=== PATIENT | male | born 1950 | race Two or more races ===

== ENCOUNTER 2019-05-09 15:33 | Inpatient (IN) | payer OTHER ==
[~2019-05-09] VITALS: Ht 188 cm; Wt 88.5 kg
[2019-05-23] MEDS ORDERED: SIMBRINZA 1%-0.28 ML OP (11:58)
[2019-05-23] MEDS ORDERED: TRAVATAN Z5 ML OP (11:59)
[2019-05-30] MEDS ORDERED: OXYC1TAB9 PO (08:50)
[2019-05-30] MEDS ORDERED: POLY119PG PO (08:51)
[2019-05-30] MEDS ORDERED: HYOSCYAMINE0.125 M1 SL (08:51)
== END 2019-05-30 11:30 | disposition home or self-care (01) | DRG 331 ==
LOC: SURG 05-23 13:00 → O/R 05-28 08:55 → SURG 05-28 08:55
PROVIDERS: ADMIT Surgery
PROC: 07TD4ZZ Resection of Aortic Lymphatic, Percutaneous Endoscopic Approach (ICD-10-PCS; 2019-05-28)
PROC: 0DTG4ZZ Resection of Left Large Intestine, Percutaneous Endoscopic Approach (ICD-10-PCS; principal; 2019-05-28 11:15)
DX: C18.6 Malignant neoplasm of descending colon (principal); R59.0 Localized enlarged lymph nodes; K63.89 Other specified diseases of intestine; I11.9 Hypertensive heart disease without heart failure; N40.0 Benign prostatic hyperplasia without lower urinary tract symptoms; D50.0 Iron deficiency anemia secondary to blood loss (chronic)